=== PATIENT | female | born 1975 | race Native Hawaiian/Other Pacific Islander ===

== ENCOUNTER 2019-07-20 14:08 | Outpatient (CLI) | payer OTHER ==
[2019-07-20 14:34] LABS: PLATELET COUNT 138 K/uL (152-353)
[2019-07-20 14:50] LABS: POTASSIUM 3.8 mmol/L (3.6-5.2)
== END 2019-07-20 20:11 | disposition home or self-care (01) ==
LOC: LABW 14:08
PROVIDERS: Nurse Practitioner Family
DX: Z79.899 Other long term (current) drug therapy (principal)
CPT/HCPCS: 36415; 80053; 85027; 87535; G0432